=== PATIENT | male | born 1995 | race Asian ===

== ENCOUNTER 2017-04-06 14:56 | Emergency (ER) | payer MEDICAID ==
[~2017-04-06] VITALS: Ht 180.3 cm; Wt 53.0 kg
[2017-04-06 14:58] VITALS: BP 143/98
== END 2017-04-06 16:06 | disposition home or self-care (01) ==
LOC: ED 16:00
DX: T81.89XA Other complications of procedures, not elsewhere classified, initial encounter (principal); R60.9 Edema, unspecified; F17.210 Nicotine dependence, cigarettes, uncomplicated; W34.00XD Accidental discharge from unspecified firearms or gun, subsequent encounter
CPT/HCPCS: 99284

== ENCOUNTER 2017-10-20 14:38 | Inpatient (IN) | payer MEDICAID ==
[~2017-10-20] VITALS: Ht 180.3 cm; Wt 55.0 kg
[2017-10-20] MEDS ORDERED: IBUPROFEN 200 MG TABLET PO ONE (15:00)
[2017-10-20] MEDS ORDERED: IBUPROFEN 200 MG TABLET ONE (15:49)
[2017-10-20] MEDS ORDERED: SODIUM CHLORIDE FLUSH 10ML SYR IVF ONE (16:00)
[2017-10-20] MEDS ORDERED: SODIUM CHLORIDE 0.9% 1,000ML IVBOLUS ONE (16:00)
[2017-10-20] MEDS ORDERED: ONDANSETRON 2MG/ML, 2ML ONE (17:07)
[2017-10-20] MEDS ORDERED: MORPHINE SULFATE 4 MG/ML, 1ML ONE (17:07)
[2017-10-20] MEDS ORDERED: MORPHINE SULFATE 4 MG/ML, 1ML IVPush ONE ×2 (17:30→22:30)
[2017-10-20] MEDS ORDERED: LORazepam 2 MG/ML, 1ML ONE (17:34)
[2017-10-20] MEDS ORDERED: ACETAMINOPHEN 325 MG TABLET PO PRN (18:00)
[2017-10-20] MEDS ORDERED: ONDANSETRON ODT 4 MG PO PRN (18:00)
[2017-10-20] MEDS ORDERED: LORazepam 2 MG/ML, 1ML IVPush ONE (18:00)
[2017-10-20 18:46] VITALS: BP 119/79
[2017-10-20] MEDS: HYDROcodone/APAP 5/325 TABLET PO PRN ×2 (19:15→23:23)
[2017-10-20 19:22] VITALS: BP 124/76
[2017-10-20] MEDS: ENOXAPARIN 30 MG/0.3 ML SQ SCH (19:42)
[2017-10-20] MEDS: GUAIFENESIN/DM 200-20MG, 10ML UDC PO PRN (22:20)
[2017-10-21] MEDS: HYDROcodone/APAP 5/325 TABLET PO PRN ×4 (03:41→20:30)
[2017-10-21 03:43] VITALS: BP 131/77
[2017-10-21] MEDS: GUAIFENESIN/DM 200-20MG, 10ML UDC PO PRN ×3 (03:51→20:30)
[2017-10-21 07:35] VITALS: BP 126/83
[2017-10-21] MEDS ORDERED: SODIUM CHLORIDE 0.9% 1,000ML IVBOLUS ONE (08:00)
[2017-10-21] MEDS: ENOXAPARIN 30 MG/0.3 ML SQ SCH ×2 (08:30→20:31)
[2017-10-21 13:51] VITALS: BP 124/79
[2017-10-21 19:56] VITALS: BP 124/84
[2017-10-22] MEDS: HYDROcodone/APAP 5/325 TABLET PO PRN ×2 (00:16→04:42)
[2017-10-22] MEDS: GUAIFENESIN/DM 200-20MG, 10ML UDC PO PRN (01:52)
[2017-10-22 04:39] VITALS: BP 112/70
[2017-10-22 09:07] VITALS: BP 113/71
[2017-10-22] MEDS ORDERED: HYDROcodone/APAP 7.5-325MG/15ML UDC PO PRN (11:30)
[2017-10-22] MEDS: ENOXAPARIN 30 MG/0.3 ML SQ SCH ×2 (11:35→23:30)
[2017-10-22 15:03] VITALS: BP 126/81
[2017-10-22 18:37] VITALS: BP 119/81
[2017-10-22 19:20] LABS: BASOPHILS # (AUTO) 0.02 x10^3/uL (0-0.1); BASOPHILS % (AUTO) 0 % (0-1); EOSINOPHILS # (AUTO) 0.55 x10^3/uL (0-0.4); EOSINOPHILS % (AUTO) 7 % (1-7); LYMPHOCYTES # (AUTO) 1.65 x10^3/uL (1-3.4); LYMPHOCYTES % (AUTO) 22 % (22-44); MD NO; MEAN CORPUSCULAR HEMOGLOBIN 31.2 pg (27.5-34.5); MEAN CORPUSCULAR HGB CONC 34.1 g/dL (33.2-36.2); MEAN CORPUSCULAR VOLUME 91.6 fL (81-97); MEAN PLATELET VOLUME 7.5 fL (7.4-10.4); MONOCYTES # (AUTO) 0.39 x10^3/uL (0.2-0.8); MONOCYTES % (AUTO) 5 % (2-9); NEUTROPHILS # (AUTO) 4.81 x10^3/uL (1.8-6.8); NEUTROPHILS % (AUTO) 65 % (42-75); PLATELET COUNT 230 x10^3/uL (130-400); RED BLOOD COUNT 4.91 x10^6/uL (4.38-5.82); RED CELL DISTRIBUTION WIDTH 12.6 % (9.4-14.8)
[2017-10-22 19:24] VITALS: BP 119/80
[2017-10-22 19:32] LABS: ALBUMIN 3.6 g/dL (3.4-5.0); ANION GAP 6 mmol/L (5-15); CALCIUM 8.5 mg/dL (8.5-10.1); CHLORIDE 105 mmol/L (98-107)
[2017-10-22 19:43] LABS: CREATININE 0.83 mg/dL (0.7-1.3)
[2017-10-22 19:44] LABS: ALANINE AMINOTRANSFERASE 10 U/L (12-78); ALKALINE PHOSPHATASE 48 U/L (45-117); BILIRUBIN,TOTAL 0.4 mg/dL (0.2-1.0); THYROID STIMULATING HORMONE 0.553 mIU/L (0.358-3.740)
[2017-10-23 02:00] VITALS: BP 114/80
[2017-10-23 08:26] VITALS: BP 115/75
[2017-10-23] MEDS: ENOXAPARIN 30 MG/0.3 ML SQ SCH (11:30)
[2017-10-23] MEDS: GUAIFENESIN/DM 200-20MG, 10ML UDC PO PRN (11:47)
[2017-10-23 12:30] VITALS: BP 117/84
[2017-10-23] MEDS ORDERED: HYDR15SO3 PO (13:06)
== END 2017-10-23 13:15 | disposition home or self-care (01) | DRG 200 ==
LOC: ED 17:27 → EDIP 17:28 → ED 17:45 → 4NOR 18:33 → 5SO 10-22 17:59 → DCLOUNGE 10-23 13:03
PROVIDERS: ADMIT Surgery; ATTEND Surgery
PROC: 0W9B30Z Drainage of Left Pleural Cavity with Drainage Device, Percutaneous Approach (ICD-10-PCS; principal; 2017-10-20)
DX: J93.83 Other pneumothorax (principal); J94.2 Hemothorax; J94.8 Other specified pleural conditions; I48.91 Unspecified atrial fibrillation; J93.82 Other air leak
CPT/HCPCS: 36415; 71045; 71046; 80053; 83735; 84100; 84443; 85025; 87081; 87880; 93005; 93306; 96361; 96374; 96375; J1650; J2060; J7030